=== PATIENT | male | born 1960 | race Hispanic/Latino ===

== ENCOUNTER 2018-04-04 13:22 | Inpatient (IN) | payer MEDICAID, OTHER ==
[2018-04-04 13:29] VITALS: O2SAT 100; BMI 28.3
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
[2018-04-04] MEDS ORDERED: Alum-Mag Hydrox-Simethicone Susp (30 mL) PO PRN (16:12)
[2018-04-04] MEDS ORDERED: Magnesium Hydroxide Susp 30 ml UD PO PRN (16:13)
--- NOTE | 2018-04-04 18:50 | PCM.BM ---
<Howard Horton - Last Filed: 04/04/18 18:47> Treatment Plan Problems - Problems identified on initial assessmt ineffective Coping skill Date Initiated: 04/04/18 Time Initiated: 15:00 Assessment reference: NA Status: Active Priority: 1 Comment: unable to cope altered Sleep Patter Date Initiated: 04/04/18 Time Initiated: 14:00 Assessment reference: NA Status: Active Priority: 2 Comment: poor sleep medication nonadherence Date Initiated: 04/04/18 Time Initiated: 15:00 Assessment reference: NA Status: Active Priority: 3 Comment: no taking medication Treatment assets and liabiliti Patient Assests: cooperative, motivated, ADL independent, negotiates basic needs Patient Liabilities: financial problems - Milieu Protocol Maintain good personal hygiene: every other day Encourage regular showers, every other day Remind patient to perform daily oral care, every other day Assist patient to perform ADL's Conduct patient checks and document Observation sheet: Q15 minutes Maintain personal safety: every shift Educate patient to report safety concerns to staff, every shift Monitor environment for contraband/sharps Medication safety: Monitor for expected outcome, potential side effects: every shift, Assess barriers to learning: every shift, Assess readiness for medication education: every shift Discharge/Continuing Care - Education Needs Education Needs: Patient Medication, Patient Diagnosis/Disease Process, Patient Coping Skills, Patient Anger Management skills, Patient Placement options, Patient Community resources, Patient Activities of Daily Living, Patient Nutrition, Patient Uses of Medical Equipment, Patient Health Practices/Safety, Patient Personal Hygiene/Grooming, Patient Aftercare Safety Plan - Discharge Discharge Criteria: Tolerates medication w/o severe side effects, Normal sleep pattern, Ability to care for self Discharge to:: [facility] <Rosario Flores - Last Filed: 04/05/18 07:14> - Diagnosis (1) Impulse control disorder, unspecified Status: Acute Interventions: 04/05/18 07:14 Psychoeducation Psychopharmacology/adjustment of medications as needed/ monitoring possible side effects Monitor blood level of mood stabilizers Evaluate pt on daily basis Compliance with medications and follow up appointments Suicide and homicide risk assessment and prevention, coping strategies, safety plan Relapse prevention Reduction of symptoms Improve functional status Family involvement As outpatient: cognitive behavioral therapy <Krysta Campbell - Last Filed: 04/07/18 14:27>
[2018-04-05] MEDS: Divalproex 250 mg DR (BID formulation) PO SCH ×2 (08:49→17:20)
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
[2018-04-06] MEDS: Divalproex 250 mg DR (BID formulation) PO SCH ×2 (10:59→17:20)
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
[2018-04-07] MEDS: Divalproex 250 mg DR (BID formulation) PO SCH ×2 (09:21→17:09)
[2018-04-07 11:09] VITALS: RESP 18; TEMP 97.5
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
[2018-04-08] MEDS: Divalproex 250 mg DR (BID formulation) PO SCH ×2 (08:00→15:45)
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
[2018-04-09] MEDS: Divalproex 250 mg DR (BID formulation) PO SCH ×2 (08:57→15:09)
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
[2018-04-10] MEDS: Divalproex 250 mg DR (BID formulation) PO SCH ×2 (08:16→15:57)
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
[2018-04-11] MEDS: Divalproex 250 mg DR (BID formulation) PO SCH ×2 (11:00→16:00)
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
[2018-04-12] MEDS: Divalproex 250 mg DR (BID formulation) PO SCH ×2 (09:01→18:17)
--- NOTE | 2018-04-12 09:04 | PCM.PYCHPN ---
Psychiatric Progress Note - Psychiatric Progress Note Patient seen today, length of contact: 30 minute Problems Identified/Issues Discussed: I reviewed assessment and recent notes. Patient was interviewed at bedside this morning. He is alert and oriented to month, year, location and circumstances. His grooming and hygiene are wnl. Patient is cooperative and bright with my questioning. Indicates that he is "fine, fine, fine, there is nothing wrong with me". He denies depression, SI, HI or perceptual disturbance". He seems pleasant but mildly edgy. Thought process is coherent and patient can express his needs well. Patient denies any side effects from medications or any new discomfort or pain. Slept well and demonstrates good appetite per staff. Staff notes indicate that patient has been visible in the dayroom and there have been no recent episodes of agitation or aggression (though he still refuses to take most of his prescribed psychiatric medications). He is generally polite and can tolerate group settings. There were no behavioral issues overnight. Diagnostic Results: r/o impulse control disorder r/o TBI Mood disorder NOS h/o substance/alcohol use disorder, but now in remission Medication Change: No ( ) Medical Record Reviewed: Yes Mental Status Examination - Cognitive Function Orientation: Person, Place, Situation Memory: Intact Attention: WNL Concentration: WNL Association: WNL Fund of Knowledge: WNL - Mood Mood: Neutral ("I feel fine") - Affect Affect: Constricted (bright, pleasant though still refusing most of his psychiatric medications) - Speech Speech: Loud (loud at times due to hearing issues) - Formal Thought Process Formal Thought Process: No Impairment (but concrete) - Suicidal Ideation Suicidal Ideation: No - Homicidal Ideation Homicidal Ideation: No Goal/Treatment Plan - Goal/Treatment Plan Need for Continued Stay: Remain at risks for inpatient hospitalization, Severe depression anxiety, Discharge may exacerbated symptoms, Severe functional impairment Progress Toward Problem(s) and Goals/Treatment Plan: -c/w current tx and plan -No new lab results thus far -Vitals reviewed and noted below: Selected Entries 04/10/18 04/11/18 15:30 15:53 Pulse Rate 120 H 124 H Blood Pressure 133/94 H 135/87 Estimated Date of D/C: 04/14/18
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
--- NOTE | 2018-04-13 09:12 | PCM.PYCHPN ---
Psychiatric Progress Note - Psychiatric Progress Note Patient seen today, length of contact: 30 minute Problems Identified/Issues Discussed: I reviewed recent notes and patient was interviewed at bedside again this morning. He denies any new issues. Patient has been in control on the unit witho ut evidence of psychosis or aggression. He can be labile but hasn't self- escalated or required prns. Staff note that he appears comfortable on the unit. Patient is looking forward to discharge and continues to deny any new side effects, discomfort or pain. He denies depression, SI, HI or perceptual disturbance". He seems pleasant but mildly edgy. Thought process is coherent and patient can express his needs well. Slept well and demonstrates good appetite per staff. Staff notes indicate that patient has been visible in the dayroom and can tolerate group settings. He is generally polite though he still refuses to take most of his prescribed psychiatric medications. There were no behavioral issues over the weekend thus far. Diagnostic Results: r/o impulse control disorder r/o TBI Mood disorder NOS h/o substance/alcohol use disorder, but now in remission Medication Change: No ( ) Medical Record Reviewed: Yes Mental Status Examination - Cognitive Function Orientation: Person, Place, Situation Memory: Intact Attention: WNL Concentration: WNL Association: [facility] Fund of Knowledge: WN - Mood Mood: Neutral ("I feel fine") - Affect Affect: Constricted (bright, pleasant though still refusing most of his psychiatric medications) - Speech Speech: Loud (loud at times due to hearing issues) - Formal Thought Process Formal Thought Process: No Impairment (but concrete) - Suicidal Ideation Suicidal Ideation: No - Homicidal Ideation Homicidal Ideation: No Goal/Treatment Plan - Goal/Treatment Plan Need for Continued Stay: Remain at risks for inpatient hospitalization, Severe depression anxiety, Discharge may exacerbated symptoms, Severe functional impairment Progress Toward Problem(s) and Goals/Treatment Plan: * c/w current tx and plan * Appreciate f/u by Dr. Reddy on 04/12/18. Per consultation: 1. Lung Nodule -Patient refusing CT Chest at this time 2. Irregular Cardiac Rhythm -Patient refusing EKG at this time Disposition: Patient refusing any medical workup or treatment at this time despite discussion of all benefits, risks and expected outcomes. Patient verbalized understanding of this and continues to refuse. Internal Medicine will be signing off at this time. Please reconsult as necessary. * No new lab results thus far * Vitals reviewed and noted below: Selected Entries 04/08/18 04/09/18 04/10/18 16:00 16:00 15:30 Pulse Rate 111 H 80 120 H Blood Pressure 117/84 129/84 133/94 H 04/11/18 15:53 Pulse Rate 124 H Blood Pressure 135/87 Estimated Date of D/C: 04/14/18
[2018-04-13] MEDS: Divalproex 250 mg DR (BID formulation) PO SCH ×2 (11:11→18:24)
[2018-04-13 16:50] VITALS: BP 137/89; PULSE 90
[2018-04-14] MEDS: Divalproex 250 mg DR (BID formulation) PO SCH (10:53)
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
== END 2018-04-14 17:22 | disposition home or self-care (01) | DRG 431 ==
LOC: ED 13:22 → ERH 13:48 → PSYC 15:33
PROVIDERS: ADMIT Psychiatry & Neurology Psychiatry; ATTEND Psychiatry & Neurology Psychiatry
DX: F63.9 Impulse disorder, unspecified (principal); F14.11 Cocaine abuse, in remission; F39 Unspecified mood [affective] disorder; F10.20 Alcohol dependence, uncomplicated; H91.92 Unspecified hearing loss, left ear; I49.9 Cardiac arrhythmia, unspecified; Z87.891 Personal history of nicotine dependence; F12.11 Cannabis abuse, in remission; Z87.820 Personal history of traumatic brain injury; E11.9 Type 2 diabetes mellitus without complications; F41.9 Anxiety disorder, unspecified; F32.89 Other specified depressive episodes